=== PATIENT | male | born 1990 | race Caucasian/White ===

== ENCOUNTER 2017-07-27 06:09 | Emergency (ER) | payer MEDICAID ==
[~2017-07-27] VITALS: Ht 322.6 cm; Wt 122.0 kg
[~2017-07-27 06:09] MED LIST: METO-395 PO; NO HOME MEDS
[2017-07-27] MEDS ORDERED: ketorolac trometh. 30mg/ml inj. IV ONE (06:30)
[2017-07-27] MEDS ORDERED: normal saline 1000ML IV soln IVB ONE (06:30)
[2017-07-27] MEDS ORDERED: ondansetron/PF 4mg/2ml inj IV ONE (06:30)
[2017-07-27] MEDS ORDERED: morphine 4 MG/ML inj SYRINge IV ONE ×4 (06:35→06:55)
[2017-07-27 06:49] LABS: CLARITY,URINE CLOUDY (Clear); COLOR,URINE BROWN (Yellow); GLUCOSE, URINE NEGATIVE (Neg); KETONES,URINE NEGATIVE (Neg); LEUKOCYTE ESTERASE ,URINE TRACE (Neg); OCCULT BLOOD,URINE LARGE (Neg); PH,URINE 5.5 (4.8-8.0); PROTEIN,URINE 100 mg/dl (Neg)
[2017-07-27 06:50] LABS: BASOPHILS # (AUTO) 0.1 X10'3 (0-0.2); BASOPHILS % (AUTO) 0.6 % (0-1); EOSINOPHILS # (AUTO) 0.1 X10'3 (0-0.9); EOSINOPHILS % (AUTO) 1.2 % (0-6); HEMATOCRIT 48.7 % (42.0-52.0); LYMPHOCYTES # (AUTO) 2.7 X10'3 (1.1-4.8); MEAN CORPUSCULAR HEMOGLOBIN 29.1 PG (27.0-31.0); MEAN CORPUSCULAR HGB CONC 34.9 % (33.0-36.5); MEAN CORPUSCULAR VOLUME 83.5 FL (78-98); MEAN PLATELET VOLUME 8.7 FL (7.4-10.4); MONOCYTES # (AUTO) 0.9 X10'3 (0-0.9); MONOCYTES % (AUTO) 9.3 % (2-12); NEUTROPHILS # (AUTO) 5.7 X10'3 (1.8-7.7); NEUTROPHILS % (AUTO) 59.9 % (42-75); PLATELET COUNT 265 X10'3 (140-440); RED BLOOD COUNT 5.83 X10'6 (4.70-6.10); RED CELL DISTRIBUTION WIDTH 12.3 % (11.5-14.5); WHITE BLOOD COUNT 9.4 X10'3 (4.5-11.0)
[2017-07-27 06:55] LABS: NITRITES, URINE NEGATIVE (Neg); UA COLLECTION TYPE NON-SPECIFIED
[2017-07-27] MEDS ORDERED: diphenhydrAMINE 50 mg/ml inj IV ONE (06:55)
[2017-07-27 06:57] LABS: RBC,URINE TNTC /HPF (0-2)
[2017-07-27 06:58] LABS: BACTERIA,URINE 1+ /HPF (Neg); MUCUS STRANDS NONE SEEN /LPF (Neg); SQUAMOUS EPITHELIAL CELL,UR NONE SEEN /LPF (FEW)
[2017-07-27 07:01] LABS: PROTHROMBIN TIME 10.1 SECONDS (9.0-12.0)
[2017-07-27 07:06] LABS: ALANINE AMINOTRANSFERASE 19 U/L (12-78); ALBUMIN 3.9 G/DL (3.4-5.0); ALBUMIN/GLOBULIN RATIO 1.1 (1.1-1.5); ALKALINE PHOSPHATASE 85 IU/L (46-116); ANION GAP 12 (8-16); ASPARTATE AMINO TRANSFERASE 13 U/L (10-37); BILIRUBIN,TOTAL 0.3 MG/DL (0.1-1.0); BLOOD UREA NITROGEN 15 MG/DL (7-18); BUN/CREATININE RATIO 10.6 (5.4-32.0); CALCIUM 9.6 MG/DL (8.5-10.1); CHLORIDE 104 MMOL/L (99-107); CREATININE 1.41 MG/DL (0.60-1.10); GLUCOSE 126 MG/DL (70-104); POTASSIUM 3.4 MMOL/L (3.5-5.1); SODIUM 140 MMOL/L (135-145); TOTAL CARBON DIOXIDE 23.8 MMOL/L (24-32); TOTAL PROTEIN 7.6 G/DL (6.4-8.2); eGFR 60 ML/MIN
[2017-07-27] MEDS ORDERED: CefTRIAXone 2gm/D5W 50ml 50 ML IV ONE (07:25)
[2017-07-27 08:28] VITALS: BP 119/70
[2017-07-27] MEDS ORDERED: HYDR-3965 PO (08:56)
[2017-07-27] MEDS ORDERED: ONDA4TAB12 PO (08:56)
[2017-07-27] MEDS ORDERED: FLO0.4C PO (08:56)
[2017-07-27] MEDS ORDERED: CEPH500C5 PO (09:02)
== END 2017-07-27 09:17 | disposition home or self-care (01) ==
LOC: ER 06:10
DX: N23 Unspecified renal colic (principal); F12.90 Cannabis use, unspecified, uncomplicated; Z79.899 Other long term (current) drug therapy
CPT/HCPCS: 36415; 74176; 80053; 81001; 85025; 85610; 87077; 87088; 87186; 96365; 96375; 99285; J0696; J1200; J1885; J2270; J2405; J7030

== ENCOUNTER 2017-12-07 18:24 | Emergency (ER) | payer MEDICAID ==
[~2017-12-07] VITALS: Ht 170.2 cm; Wt 103.0 kg
[~2017-12-07 18:24] MED LIST changes: +CEPH500C5 PO; +ONDA4TAB12 PO
[2017-12-07 19:09] LABS: BASOPHILS % (AUTO) 0.3 % (0-1); EOSINOPHILS # (AUTO) 0.1 X10'3 (0-0.9); EOSINOPHILS % (AUTO) 0.9 % (0-6); HEMATOCRIT 49.9 % (42.0-52.0); HEMOGLOBIN 17.1 g/dl (14.0-17.9); LYMPHOCYTES # (AUTO) 1.1 X10'3 (1.1-4.8); LYMPHOCYTES % (AUTO) 16.2 % (21-51); MEAN CORPUSCULAR HGB CONC 34.2 % (33.0-36.5); MEAN CORPUSCULAR VOLUME 84.6 FL (78-98); MEAN PLATELET VOLUME 8.3 FL (7.4-10.4); MONOCYTES # (AUTO) 0.9 X10'3 (0-0.9); MONOCYTES % (AUTO) 13.5 % (2-12); NEUTROPHILS # (AUTO) 4.8 X10'3 (1.8-7.7); NEUTROPHILS % (AUTO) 69.1 % (42-75); PLATELET COUNT 219 X10'3 (140-440); RED BLOOD COUNT 5.89 X10'6 (4.70-6.10); RED CELL DISTRIBUTION WIDTH 12.3 % (11.5-14.5); WHITE BLOOD COUNT 6.9 X10'3 (4.5-11.0)
[2017-12-07 19:19] LABS: ALANINE AMINOTRANSFERASE 20 U/L (12-78); ALBUMIN 3.7 G/DL (3.4-5.0); ALBUMIN/GLOBULIN RATIO 0.9 (1.1-1.5); ALKALINE PHOSPHATASE 70 IU/L (46-116); ANION GAP 12 (8-16); ASPARTATE AMINO TRANSFERASE 16 U/L (10-37); BILIRUBIN,TOTAL 0.6 MG/DL (0.1-1.0); BLOOD UREA NITROGEN 13 MG/DL (7-18); CALCIUM 8.8 MG/DL (8.5-10.1); CHLORIDE 102 MMOL/L (99-107); GLUCOSE 109 MG/DL (70-104); SODIUM 137 MMOL/L (135-145); TOTAL CARBON DIOXIDE 23.3 MMOL/L (24-32); TOTAL PROTEIN 7.7 G/DL (6.4-8.2); eGFR 66 ML/MIN
[2017-12-07 19:25] LABS: POTASSIUM 3.8 MMOL/L (3.5-5.1)
[2017-12-07 19:33] LABS: INR 1.1 INR; PARTIAL THROMBOPLASTIN TIME 29 SECONDS (22-32); PROTHROMBIN TIME 10.7 SECONDS (9.0-12.0)
[2017-12-07] MEDS ORDERED: LIDOcaine Viscous 15ml cup PO ONE (19:40)
[2017-12-07] MEDS ORDERED: mag hydrox/Alum hydrox/simeth 30ml oral suspension PO ONE (19:40)
[2017-12-07] MEDS ORDERED: sucralfate 1 gm tablet PO ONE (19:40)
[2017-12-07] MEDS ORDERED: famotidine 20mg tablet PO ONE (19:40)
[2017-12-07] MEDS ORDERED: FAMO40TA73 PO (20:04)
[2017-12-07 20:10] VITALS: BP 140/78
[2017-12-07] MEDS ORDERED: morphine 4 MG/ML inj SYRINge IV ONE (20:15)
[2017-12-07] MEDS ORDERED: ondansetron/PF 4mg/2ml inj IV ONE (20:15)
[2017-12-07] MEDS ORDERED: LORazepam 2 mg/ml vial IV ONE (20:35)
== END 2017-12-07 20:38 | disposition home or self-care (01) ==
LOC: ER 18:24
DX: K29.00 Acute gastritis without bleeding (principal); F12.10 Cannabis abuse, uncomplicated
CPT/HCPCS: 36415; 71045; 80053; 84484; 85025; 85610; 85730; 93005; 96374; 96375; 99285; J2060; J2270; J2405

== ENCOUNTER 2019-07-02 06:40 | Emergency (ER) | payer MEDICAID, OTHER ==
[~2019-07-02] VITALS: Ht 170.2 cm; Wt 127.0 kg
[~2019-07-02 06:40] MED LIST changes: -CEPH500C5 PO; +FAMO40TA73 PO
[2019-07-02] MEDS ORDERED: ketorolac trometh. 30mg/ml inj. IV ONE (06:55)
[2019-07-02] MEDS ORDERED: ondansetron/PF 4mg/2ml inj IV ONE (06:55)
[2019-07-02] MEDS ORDERED: normal saline 1000ML IV soln IVB ONE (06:55)
[2019-07-02 07:05] LABS: CLARITY,URINE SLIGHTLY CLOUDY (Clear); COLOR,URINE YELLOW (Yellow); GLUCOSE, URINE NEGATIVE (Neg); KETONES,URINE NEGATIVE (Neg); LEUKOCYTE ESTERASE ,URINE SMALL (Neg); NITRITES, URINE NEGATIVE (Neg); OCCULT BLOOD,URINE MODERATE (Neg); PROTEIN,URINE 30 mg/dl (Neg); UROBILINOGEN,URINE 0.2 E.U/dL (0.2-1.0)
--- NOTE | 2019-07-02 07:08 | NUR ---
patient to ct.
[2019-07-02 07:18] LABS: UA COLLECTION TYPE CLN CATCH MIDSTREAM
[2019-07-02 07:24] LABS: BASOPHILS # (AUTO) 0.1 X10'3 (0-0.2); BASOPHILS % (AUTO) 0.6 % (0-1); EOSINOPHILS # (AUTO) 0.1 X10'3 (0-0.9); EOSINOPHILS % (AUTO) 1.3 % (0-6); HEMATOCRIT 45.7 % (42.0-52.0); HEMOGLOBIN 15.6 g/dl (14.0-17.9); LYMPHOCYTES # (AUTO) 2.5 X10'3 (1.1-4.8); LYMPHOCYTES % (AUTO) 24.3 % (21-51); MEAN CORPUSCULAR HGB CONC 34.1 g/dL (33.0-36.5); MONOCYTES # (AUTO) 1.1 X10'3 (0-0.9); MONOCYTES % (AUTO) 10.7 % (2-12); NEUTROPHILS # (AUTO) 6.5 X10'3 (1.8-7.7); NEUTROPHILS % (AUTO) 63.1 % (42-75); PLATELET COUNT 254 X10'3 (140-440); RED BLOOD COUNT 5.37 X10'6 (4.70-6.10); RED CELL DISTRIBUTION WIDTH 13.4 % (11.5-14.5); WHITE BLOOD COUNT 10.3 X10'3 (4.5-11.0)
[2019-07-02 07:29] LABS: MUCUS STRANDS FEW /LPF (Neg); SQUAMOUS EPITHELIAL CELL,UR MODERATE /LPF (FEW)
[2019-07-02 07:31] LABS: RBC,URINE 20-50 /HPF (0-2)
[2019-07-02 07:35] LABS: BACTERIA,URINE 1+ /HPF (Neg)
[2019-07-02 07:41] LABS: ALANINE AMINOTRANSFERASE 23 U/L (12-78); ALBUMIN 3.9 G/DL (3.4-5.0); ALBUMIN/GLOBULIN RATIO 1.1 (1.1-1.5); ALKALINE PHOSPHATASE 74 IU/L (46-116); ANION GAP 8 (8-16); ASPARTATE AMINO TRANSFERASE 18 U/L (10-37); BILIRUBIN,TOTAL 0.6 MG/DL (0.1-1.0); BLOOD UREA NITROGEN 16 MG/DL (7-18); CHLORIDE 104 MMOL/L (99-107); CREATININE 1.23 MG/DL (0.60-1.10); GLUCOSE 99 MG/DL (70-104); LIPASE 123 U/L (73-393); POTASSIUM 3.8 MMOL/L (3.5-5.1); SODIUM 141 MMOL/L (135-145); TOTAL CARBON DIOXIDE 29.5 MMOL/L (24-32); TOTAL PROTEIN 7.5 G/DL (6.4-8.2); eGFR 70 ML/MIN
[2019-07-02] MEDS ORDERED: CEPH500C5 PO (08:27)
[2019-07-02 08:36] VITALS: BP 117/67
--- NOTE | 2019-07-05 11:01 | NUR ---
PT CALLED, INFORMED THAT THE ABX HE IS CURRENTLY TAKING FOR HIS UTI NEEDS TO BE CHANGED. PT TOLD THAT HE IS TO STOP TAKING THE KEFLEX AND A NEW RX FOR BACRTIM DS WILL BE GUNN TO HIS PHARMACY OF CHOICE. PT REQUESTED THAT THE NEW RX BE CALLED TO [facility] [place]. BACTRIM DS, 1 PO BID [phone] DAYS #[id number], NO REFILLS CALLED TO [facility] [place] REQUESTED BY PT.
== END 2019-07-02 08:38 | disposition home or self-care (01) ==
LOC: ER 06:41
DX: N39.0 Urinary tract infection, site not specified (principal); E66.9 Obesity, unspecified; Z87.442 Personal history of urinary calculi; Z79.899 Other long term (current) drug therapy
CPT/HCPCS: 36415; 74176; 80053; 81001; 83690; 85025; 87077; 87088; 87186; 96374; 96375; 99284; J1885; J2405; J7030

== ENCOUNTER 2019-08-07 20:07 | Emergency (ER) | payer BC, OTHER ==
[~2019-08-07] VITALS: Ht 170.2 cm; Wt 125.0 kg
[~2019-08-07 20:07] MED LIST changes: +CEPH500C5 PO
[2019-08-07 20:42] LABS: BASOPHILS % (AUTO) 0.7 % (0-1); EOSINOPHILS # (AUTO) 0.1 X10'3 (0-0.9); EOSINOPHILS % (AUTO) 1.8 % (0-6); HEMATOCRIT 46.8 % (42.0-52.0); HEMOGLOBIN 16.3 g/dl (14.0-17.9); LYMPHOCYTES # (AUTO) 1.8 X10'3 (1.1-4.8); LYMPHOCYTES % (AUTO) 25.7 % (21-51); MEAN CORPUSCULAR HEMOGLOBIN 29.3 PG (27.0-31.0); MEAN CORPUSCULAR HGB CONC 34.8 g/dL (33.0-36.5); MEAN CORPUSCULAR VOLUME 84.2 FL (78-98); MEAN PLATELET VOLUME 7.9 FL (7.4-10.4); MONOCYTES # (AUTO) 0.8 X10'3 (0-0.9); MONOCYTES % (AUTO) 10.9 % (2-12); NEUTROPHILS # (AUTO) 4.2 X10'3 (1.8-7.7); NEUTROPHILS % (AUTO) 60.9 % (42-75); PLATELET COUNT 236 X10'3 (140-440); RED BLOOD COUNT 5.55 X10'6 (4.70-6.10); RED CELL DISTRIBUTION WIDTH 12.8 % (11.5-14.5); WHITE BLOOD COUNT 6.9 X10'3 (4.5-11.0)
[2019-08-07 20:56] LABS: ALANINE AMINOTRANSFERASE 23 U/L (12-78); ALBUMIN 4.1 G/DL (3.4-5.0); ALBUMIN/GLOBULIN RATIO 1.3 (1.1-1.5); ALKALINE PHOSPHATASE 71 IU/L (46-116); ANION GAP 10 (8-16); ASPARTATE AMINO TRANSFERASE 21 U/L (10-37); BILIRUBIN,TOTAL 0.5 MG/DL (0.1-1.0); BLOOD UREA NITROGEN 13 MG/DL (7-18); BUN/CREATININE RATIO 10.4 (5.4-32.0); CALCIUM 9.1 MG/DL (8.5-10.1); CHLORIDE 105 MMOL/L (99-107); CREATININE 1.25 MG/DL (0.60-1.10); GLUCOSE 106 MG/DL (70-104); POTASSIUM 3.6 MMOL/L (3.5-5.1); SODIUM 142 MMOL/L (135-145); TOTAL PROTEIN 7.3 G/DL (6.4-8.2); eGFR 68 ML/MIN
[2019-08-07 22:07] VITALS: BP 138/97
== END 2019-08-07 22:10 | disposition home or self-care (01) ==
LOC: ER 20:08
DX: I49.3 Ventricular premature depolarization (principal); R00.2 Palpitations; Z72.89 Other problems related to lifestyle; Z79.899 Other long term (current) drug therapy
CPT/HCPCS: 36415; 71045; 80053; 84484; 85025; 93005; 99285

== ENCOUNTER 2021-11-23 01:03 | Emergency (ER) | payer BC, MEDICAID ==
[~2021-11-23] VITALS: Ht 170.2 cm; Wt 127.3 kg
[~2021-11-23 01:03] MED LIST changes: -CEPH500C5 PO
[2021-11-23 02:48] LABS: BASOPHILS # (AUTO) 0.1 X10'3 (0-0.2); BASOPHILS % (AUTO) 0.6 % (0-1); EOSINOPHILS % (AUTO) 0.3 % (0-6); HEMATOCRIT 47.1 % (42.0-52.0); HEMOGLOBIN 16.4 g/dl (14.0-17.9); LYMPHOCYTES # (AUTO) 1.3 X10'3 (1.1-4.8); LYMPHOCYTES % (AUTO) 10.9 % (21-51); MEAN CORPUSCULAR HGB CONC 34.9 g/dL (33.0-36.5); MEAN PLATELET VOLUME 8.3 FL (7.4-10.4); MONOCYTES # (AUTO) 1.3 X10'3 (0-0.9); MONOCYTES % (AUTO) 10.9 % (2-12); NEUTROPHILS # (AUTO) 9.3 X10'3 (1.8-7.7); NEUTROPHILS % (AUTO) 77.3 % (42-75); PLATELET COUNT 238 X10'3 (140-440); RED BLOOD COUNT 5.67 X10'6 (4.70-6.10); RED CELL DISTRIBUTION WIDTH 13.2 % (11.5-14.5); WHITE BLOOD COUNT 12.1 X10'3 (4.5-11.0)
[2021-11-23 03:01] LABS: ALANINE AMINOTRANSFERASE 36 U/L (12-78); ALBUMIN/GLOBULIN RATIO 1.1 (1.1-1.5); ALKALINE PHOSPHATASE 72 IU/L (46-116); ANION GAP 14 (8-16); ASPARTATE AMINO TRANSFERASE 19 U/L (10-37); BILIRUBIN,TOTAL 0.9 MG/DL (0.1-1.0); BLOOD UREA NITROGEN 15 MG/DL (7-18); BUN/CREATININE RATIO 12.1 (5.4-32.0); CALCIUM 9.5 MG/DL (8.5-10.1); CHLORIDE 102 MMOL/L (99-107); CREATININE 1.24 MG/DL (0.60-1.10); GLUCOSE 118 MG/DL (70-104); POTASSIUM 3.2 MMOL/L (3.5-5.1); SODIUM 139 MMOL/L (135-145); TOTAL PROTEIN 7.8 G/DL (6.4-8.2); eGFR 68 ML/MIN
[2021-11-23] MEDS ORDERED: magnesium oxide 400mg tablet PO ONE (04:20)
[2021-11-23] MEDS ORDERED: potassium Cl 20 mEq SR tablet PO ONE (04:20)
[2021-11-23] MEDS ORDERED: metoprolol tartrate 25mg tablet PO ONE (04:30)
[2021-11-23 04:34] VITALS: BP 141/86
== END 2021-11-23 04:40 | disposition home or self-care (01) ==
LOC: ER 01:03
DX: I49.3 Ventricular premature depolarization (principal); R00.0 Tachycardia, unspecified; E87.6 Hypokalemia; R94.31 Abnormal electrocardiogram [ECG] [EKG]; R07.89 Other chest pain; E78.00 Pure hypercholesterolemia, unspecified
CPT/HCPCS: 36415; 71045; 80053; 83880; 84484; 85025; 93005; 99285